=== PATIENT | male | born 1955 | race Two or more races ===

== ENCOUNTER 2018-05-07 13:07 | Emergency (ER) | payer OTHER ==
[~2018-05-07] VITALS: Ht 170.2 cm; Wt 68.0 kg
[2018-05-07 13:37] VITALS: Ht 170.2 cm; Wt 68.0 kg
[2018-05-07 15:35] VITALS: BP 135/101
== END 2018-05-07 15:45 | disposition home or self-care (01) ==
LOC: ED 13:07
DX: H93.19 Tinnitus, unspecified ear (principal); I10 Essential (primary) hypertension; Z76.0 Encounter for issue of repeat prescription